=== PATIENT | female | born 1930 | race Caucasian/White ===

== ENCOUNTER 2017-04-13 06:15 | Inpatient (IN) | payer MEDICARE ==
--- NOTE | ~2017-04-13 | HP ---
History And Physical [id number] [place]. [address] NAME: MICHAEL CUMMINGS : [birth year] STATUS : ADM IN [facility]#: [id number] AGE: 86 ADM/REG DATE : 04/13/17 MR#: [id number] REPORT SERV DATE: 04/13/17 DICTATED BY: DACIA FIGUEROA DATE: 04/13/17 REPORT STATUS : Draft TRANSCRIBED BY: MODL DATE: 04/13/17 DATE OF ADMISSION: 04/13/2017 CHIEF COMPLAINT: Cough, shortness of breath, and generalized weakness. HISTORY OF PRESENT ILLNESS: Ms. Cummings is an 86-year-old female, who presented to the hospital early this morning with cough and shortness of breath that she says has progressed over 24 hours. According to her son, he visited with her earlier in the day and he noticed that she was not as talkative and seemed to be having some difficulty getting around, but he was not suspicious at that time. Later in the evening, the staff from the assisted living called and said that she was not herself and that she could not get out of bed. So, he drove over to the assisted living and took her to the emergency room. In the emergency room, she had her oxygen on, but her tank was empty and her O2 saturation was in the 70s. She also had acute hypercapnic respiratory failure with a pH of 7.3, a pCO2 of 60. She was offered BiPAP and refused. She was given Solu-Medrol 125 IV x1, and Levaquin 750 mg IV x1. This morning, she complains still of being shortness of breath. She is hoarse and she is feeling a little better. ALLERGIES: PENICILLIN, SULFA, ASPIRIN AND HCTZ. HCTZ HAS CAUSED HYPONATREMIA IN THE PAST. PRESENT MEDICATIONS: Present medications include Lopressor 25 twice daily, atorvastatin 40 at bedtime, Duragesic-25 every 72 hours, Lortab 5/325 four times a day, Neurontin 400 mg three times a day, Nexium 20 mg twice daily, amlodipine 7.5 daily, Senna-Gen 2 mg at bedtime, losartan 50 mg daily, Lopressor 50 mg twice daily, ferrous sulfate 325 daily, Actonel 35 mg q.week, Flector twice daily, trazodone 50 at bedtime, nitroglycerin patch once daily and at 0.2 mg/hour, Breo 100 one inhalation daily, Plavix 75 daily, Remeron 50 at bedtime, Lasix 20 daily, KCl 10 one tab three times a week, Cymbalta 30 twice daily, calcium with vitamin D twice daily, levothyroxine 75 mcg daily, Artificial Tears, DuoNeb as needed, and vitamin D3 26216 units every week. PAST MEDICAL HISTORY: Significant for COPD. She is an ex-smoker. She was in the hospital in November of this year for COPD exacerbation. She has chronic respiratory failure and is always on 2 L of oxygen. CAD, status post stenting. PVD, status post stenting of right lower extremity. Hypertension, CKD 3, hyperlipidemia, depression, anxiety, gastroesophageal reflux disease, chronic intermittent diarrhea secondary to a partial colectomy for colon cancer, essential tremor, low vision, venous insufficiency, osteoporosis. SOCIAL HISTORY: She lives in assisted living. She is an ex smoker. She does have an adult son who is involved in her care. FAMILY HISTORY: Noncontributory. REVIEW OF SYSTEMS: She does have an occasional chest pain. No diarrhea presently. No nausea, vomiting, abdominal pain, or dizziness. She does complain that when she takes her breathing treatment, it does worsen her tremor and makes it difficult for her to use her utensils to History And Physical [address] [place]. [address] NAME: MICHAEL CUMMINGS : [birth year] STATUS : ADM IN [facility]#: [id number] AGE: 86 ADM/REG DATE : 04/13/17 MR#: [id number] REPORT SERV DATE: 04/13/17 DICTATED BY: DACIA FIGUEROA DATE: 04/13/17 REPORT STATUS : Draft TRANSCRIBED BY: DERRICK DATE: 04/13/17 eat. PHYSICAL EXAMINATION: VITAL SIGNS: T-max was 101.8, blood pressure was 135/65, pulse was 108, respiratory rate was 18, O2 saturation was 92% on 3 L. GENERAL: She is an elderly white female, in no apparent distress. HEENT: Normocephalic, atraumatic. Conjunctiva not injected. No scleral icterus. Edentulous, wears dentures. CARDIAC: Regular rate and rhythm. LUNGS: She has diffuse rhonchi with occasional wheezing. ABDOMEN: Positive bowel sounds. Soft, nondistended, nontender. EXTREMITIES: 1+ edema in the lower extremities. NEURO: She is alert, fluent, but she is hoarse. She has 4/5 strength in her upper extremities, 4+ out of 5 in lower extremities. SKIN: No pressure ulcers. Does have some bruising on her forearm and her hands. : Has Stover draining clear, yellow urine. LABORATORY: Evaluation white count was elevated at 13.9, hemoglobin of 11.2, platelets 298. Chemistry was normal except for creatinine of 1.34 and a glucose of 155, albumin was 3.3. Lactate was normal at 1.4. BNP was 86.9. Troponin was less than 0.02. INR was 1.1. Blood gas was 7.30, 62, 259, 29.8, and 99%. UA, she had 30 proteins, small leukocyte esterase, she had 39 WBC and bacteria with flu. Chest x-ray showed no acute cardiopulmonary abnormality. IMPRESSION AND PLAN: 1. Chronic obstructive pulmonary disease exacerbation with [id number] hypercapnic- hypoxic respiratory failure. We will start DuoNebs q.6 hours. Prednisone 40 mg daily for five days only. Inhaled steroids. Continue Levaquin IV. Incentive spirometry. Continue oxygen. Repeat chest x-ray in the a.m. with a PA and lateral. We will do DVT prophylaxis with Lovenox. We will order PT evaluation and therapy. 2. Coronary artery disease, hypertension, peripheral vascular disease. Continue losartan, amlodipine, metoprolol, Plavix, atorvastatin. Sublingual nitroglycerin as needed. 3. Chronic pain of back and lower extremities. Continue Duragesic patch, Lortab, Flector patch. 4. Venous insufficiency. Continue furosemide and potassium. 5. Gastroesophageal reflux disease. Continue Nexium, PPI. 6. Depression, anxiety with insomnia. Continue trazodone, Cymbalta, and Remeron. 7. Discontinue Stover. 8. Hypothyroidism. Check TSH in a.m. Continue levothyroxine. The patient is a DNR, limited additional interventions. Son was at bedside. Explained treatment and plan of care. The patient urged to be compliant with her bronchodilators even though they may worsen her tremor, because they will help with her chronic obstructive pulmonary disease and improve her breathing and she was agreeable to this. LMB/MODL History And Physical [address] [place]. [address] NAME: MICHAEL CUMMINGS : [birth year] STATUS : ADM IN PAT#: [id number] AGE: 86 ADM/REG DATE : 04/13/17 MR#: [id number] REPORT SERV DATE: 04/13/17 DICTATED BY: DACIA FIGUEROA DATE: 04/13/17 REPORT STATUS : Draft TRANSCRIBED BY: DERRICK DATE: 04/13/17 Dacia Figueroa M.D. / [id number] CC: Dacia Figueroa M.D.
--- NOTE | ~2017-04-13 | DS ---
Discharge Summary [address] [place]. [address] NAME: MICHAEL CUMMINGS : [birth year] STATUS : DIS IN PAT#: [id number] AGE: 86 ADM/REG DATE : 04/13/17 MR#: [id number] REPORT SERV DATE: 04/30/17 DICTATED BY: DACIA FIGUEROA DATE: 04/29/17 REPORT STATUS : Draft TRANSCRIBED BY: DERRICK DATE: 04/29/17 Data Collection from hospitalization DISCHARGE DIAGNOSES: 1. Chronic obstructive pulmonary disease exacerbation. 2. Coronary artery disease. 3. Stage III chronic kidney disease. 4. Depression. 5. Chronic pain. 6. Hypertension. 7. Former smoker. 8. Anxiety. 9. Gastroesophageal reflux disease. 10.History of colon cancer. 11.Essential tremors. 12.Venous insufficiency. 13.Osteoporosis. CONSULTATIONS: None. PROCEDURES PERFORMED: None. MEDICATIONS: DuoNeb inhaled solution one nebulized inhalation as instructed; ProAir two puffs via inhaler every four hours as needed; albuterol one nebulized inhaler every six hours as instructed; Norvasc 7.5 mg every morning; Lipitor 40 mg at bedtime; Caltrate Plus D 600 mg twice a day; maximum D3 100,000 units every 30 days as instructed; Plavix 75 mg at bedtime; Voltaren one application topically twice a day; Cymbalta 30 mg twice a day; Duragesic one patch topically every 72 hours; ferrous sulfate 325 mg every morning; Flonase nasal spray two sprays nasally twice a day; Breo Ellipta one puff via inhaler every morning; Siltussin 10 mL every six hours as needed; Basalt 5/325 one tablet four times a day as needed; Levaquin 750 mg every 48 hours as instructed; Synthroid 75 mcg every morning; Imodium 2 mg four times a day as needed; Cozaar 50 mg every morning; Lopressor 75 mg twice a day; Remeron 15 mg at bedtime; Clear Eyes one drop as needed; Nitro-Dur one patch topically daily; Protonix 40 mg before breakfast; Klor-Con 10 mEq on Mondays, Wednesdays, and Fridays; Deltasone 40 mg daily as instructed; Actonel 35 mg every seven days; Florastor 250 mg twice a day; Spiriva two capsules via inhaler daily; Desyrel 25 mg at bedtime; Drisdol one capsule every 14 days as instructed; and Flector patch one patch topically twice a day as needed. She was instructed not to continue Nexium, Tylenol, Pulmicort, hydrochlorothiazide, hydrocortisone, senna, Abreva, or Robitussin. CONDITION AT DISCHARGE: Stable. DISPOSITION: The patient was discharged home on a low-cholesterol, low-sodium, 1800-calorie cardiac/diabetic diet with no concentrated carbohydrates and activities as instructed. HOSPITAL COURSE: This is an 86-year-old female who presented to the hospital on the morning of this admission with a cough and shortness of breath and she had progressed over the last 24 hours. According to her son, he visited with her earlier in the day and he noticed that Discharge Summary [address] [address] NAME: MICHAEL CUMMINGS : [birth year] STATUS : DIS IN PAT#: [id number] AGE: 86 ADM/REG DATE : 04/13/17 MR#: [id number] REPORT SERV DATE: 04/30/17 DICTATED BY: DACIA FIGUEROA DATE: 04/29/17 REPORT STATUS : Draft TRANSCRIBED BY: DERRICK DATE: 04/29/17 she was not as talkative and seemed to be having some difficulty getting around, but he was not suspicious at that time. Later in the evening, the staff from the assisted living facility called and said that she was not herself and that she could not get out of bed. So, he drove to the assisted living facility and took her to the emergency room. In the emergency room, she had her oxygen on, but her tank was empty. Her O2 saturations were in the 70s. She also had acute hypercapnic respiratory failure. She was admitted to the hospital for further evaluation and treatment. Upon admission, she was hoarse, but was feeling a little better. She was given a dose of IV Solu-Medrol and a dose of IV Levaquin. DuoNebs were started. Prednisone was going to be continued for five days. Inhaled steroids would be provided. IV Levaquin was continued. She was encouraged to use incentive spirometry. Oxygen was continued. Lovenox would be started for DVT prophylaxis. Losartan, amlodipine, metoprolol, Plavix, and atorvastatin were continued. She would be given sublingual nitroglycerin as needed. For her chronic pain, Duragesic patch, Lortab, and Flector patch were continued. We were also going to continue her furosemide, potassium, Nexium, proton pump inhibitor, trazodone, Cymbalta, and Remeron. The Stover catheter was going to be removed. We were going to check a TSH and we would continue her levothyroxine. The patient is a DNR code status with limited additional intervention. The patient was urged to be compliant with her bronchodilators even though that may worsen her tremor because this would help with her chronic obstructive pulmonary disease and improve her breathing. The following day, she was evaluated by Physical Therapy. She did have a bowel movement. She ambulated with Physical Therapy. She denied any increase in her tremor. She did have diffuse rhonchi and wheezing in her lung oliver. Steroids and bronchodilators were continued as well as oxygen and antibiotics. Stool was going to be checked for occult blood. On 04/15/2017, she had no acute complaints. She did have some shortness of breath on exertion. She had no chest pain. She had an occasional cough. She continued to have bowel movements. She complained that her pain had increased with decreasing the opiates. Opiates were increased back to baseline. Discharge planning was performed. On 04/16/2017, she had an occasional cough that was only minimally productive. She had no edema. She had no rhonchi or wheezing. Levaquin was continued as well as steroids and bronchodilators. Oxygen was also continued. A dose of KCl was given. Discharge instructions were given. Due to her improved and stable condition, she was discharged home to [facility] with the above-stated instructions. Information collected by: Jessica Almazan I submit the above information as my discharge summary. JUAN M/DERRICK Dacia Figueroa M.D. / [id number] CC: Dacia Figueroa M.D.
[~2017-04-13 06:15] MED LIST: ABREVA; ACETAMINOPHEN; ACETSUP650 PR; ACTONEL35 MG PO; ALBUTEROL0.083 %; ALIGN4 MG PO; ATROVENTUD INH; BREO ELLIPTA INH; CALCIUM 600MG; CALTRA600D PO; COZ50 PO; CYMBALTA30 PO; CYMBALTA60 PO; D 5000; D.O.S.100 MG PO; DULERA 200 MCG/13 GM INH; DUONEB INH; DURA25 TOP; FERROUS SULF325 M1 PO; FLECTOR PATCH TOP; FLONASE NAS; FLORASTOR250 MG PO; GGEXPUD PO; HEMOCYTE324 MG PO; HYDROCHLOROT12.5 MG PO; HYDROCODONE; HYDROCODONE 7.5/500; IMOD PO; KLOR-CON 1010 MEQ PO; L20 PO; LEVAQUIN5T PO; LEVAQUIN750 MG PO; LEVOTHYROXIN75 MCG PO; LIBRAX PO; LIPITOR40 PO; LOP25 PO; LOP50 PO; MEDROL4 PO; MEDROLPAK4; MINITRAN0.2 MG/HR TOP; MUCINEX600 MG PO; NEUR300 PO; NEUR400 PO; NEXIUM20 M1 PO; NITROII10C TOP; NORCO1 TA1 PO; NORV5 PO; P10; PCET PO; PLAVIX PO; PRIN10 PO; PROAIRRESP INH; PULRESP.5 INH; REM15 PO; SENTAB PO; SYN.05 PO; SYSTANE OPH; T PO; TEAR OPH; TEARS PLUS OPH; TRAZ50 PO; VENTOLIN HFA INH; VITAMIN B-121000 MC1 SL; VITD PO; VOLTAREN1 %; VOLTAREN1 % TOP; [UNRECOGNIZED DRUG - CODE]; [UNRECOGNIZED DRUG - OTHER]
[2017-04-13] MEDS ORDERED: FERROUS SULF325 M1 PO (09:29)
[2017-04-13] MEDS ORDERED: ACTONEL35 MG PO (09:29)
[2017-04-13] MEDS ORDERED: ZOSTRIX CREAM56.6 GM (09:33)
[2017-04-13] MEDS ORDERED: REM15 PO (09:34)
[2017-04-13] MEDS ORDERED: L20 PO (09:35)
[2017-04-14 07:15] LABS: BASOPHILS 0 %; EOSINOPHILS 0 %; HEMOGLOBIN 9.7 g/dL (12.0-16.0); IMMATURE GRANULOCYTES 0.4 %; IMMATURE GRANULOCYTES ABSOLUTE 0.03 10/3/uL (0.0-0.11); LYMPHOCYTES 9.4 %; LYMPHOCYTES ABSOLUTE 0.72 10/3/uL (0.67-4.30); MEAN CORPUS HGB CONC 30.8 g/dL (32.0-36.0); MEAN CORPUSCULAR HEMOGLOB 29.7 pg (26.0-34.0); MEAN CORPUSCULAR VOLUME 96.3 fL (80-100); MEAN PLATELET VOLUME 9.6 fL (9.2-13.0); MONOCYTES 7.3 %; MONOCYTES ABSOLUTE 0.56 10/3/uL (0.21-1.20); NEUTROPHILS 82.9 %; NEUTROPHILS ABSOLUTE 6.35 10/3/uL (2.02-8.40); PLATELET COUNT 219 10/3/uL (150-400); RBC DISTRIBUTION WIDTH 12.8 % (12.0-16.0); RED CELL COUNT 3.27 10/6/uL (4.0-5.6)
[2017-04-14 07:18] LABS: HEMATOCRIT 31.5 % (36.0-48.0); MANUAL DIFF NO %; WHITE BLOOD CELLS 7.7 10/3/uL (4.5-10.5)
[2017-04-14 07:26] LABS: BUN (BLOOD UREA NITROGEN) 21 MG/DL (6-23); CALCIUM, SERUM 8.8 MG/DL (8.5-10.4); CHLORIDE, SERUM 97 MMOL/L (96-112); CO2 (CARBON DIOXIDE) 34 MMOL/L (24-34); CREATININE 1.14 MG/DL (0.55-1.02); GFR AFRICAN AMERICAN 50 ML/MIN (>=60); GFR NON AFRICAN AMERICAN 43 ML/MIN (>=60); GLUCOSE, SERUM 121 MG/DL (60-99); POTASSIUM, SERUM 3.7 MMOL/L (3.5-5.3); SODIUM, SERUM 138 MMOL/L (135-148); ULTRASENSITIVE TSH 0.491 MCIU/ML (0.358-3.740)
[2017-04-14] MEDS ORDERED: ALBUTEROL0.083 % INH (16:16)
[2017-04-14] MEDS ORDERED: T PO (16:16)
[2017-04-14] MEDS ORDERED: PULRESP.5 INH (16:17)
[2017-04-14] MEDS ORDERED: NORV5 PO (16:17)
[2017-04-14] MEDS ORDERED: CALTRA600D PO (16:17)
[2017-04-14] MEDS ORDERED: BREO ELLIPTA INH (16:17)
[2017-04-14] MEDS ORDERED: CYMBALTA30 PO (16:19)
[2017-04-14] MEDS ORDERED: DRISDOL 50000 UNIT PO (16:19)
[2017-04-14] MEDS ORDERED: NEXIUM20 M1 PO (16:20)
[2017-04-14] MEDS ORDERED: DURA25 TOP (16:21)
[2017-04-14] MEDS ORDERED: FERROUS SULF325 M1 PO (16:22)
[2017-04-14] MEDS ORDERED: FLONASE NAS (16:22)
[2017-04-14] MEDS ORDERED: NEUR300 PO (16:25)
[2017-04-14] MEDS ORDERED: HYDROCHLOROT12.5 MG PO (16:26)
[2017-04-14] MEDS ORDERED: NORCO1 TA1 PO (16:26)
[2017-04-14] MEDS ORDERED: CORT-DOME 1% CR15 GM TOP (16:40)
[2017-04-14] MEDS ORDERED: DUONEB INH ×3 (16:40→16:59)
[2017-04-14] MEDS ORDERED: COZ50 PO (16:41)
[2017-04-14] MEDS ORDERED: SYN075 PO (16:41)
[2017-04-14] MEDS ORDERED: KLOR-CON 1010 MEQ PO (16:41)
[2017-04-14] MEDS ORDERED: MEDROLPAK4 PO (16:42)
[2017-04-14] MEDS ORDERED: LOP25 PO (16:43)
[2017-04-14] MEDS ORDERED: NITROII10C TOP (16:44)
[2017-04-14] MEDS ORDERED: ACTONEL35 MG PO (16:46)
[2017-04-14] MEDS ORDERED: MAXIMUM D3 PO (16:47)
[2017-04-14] MEDS ORDERED: VOLTAREN1 % TOP (16:47)
[2017-04-14] MEDS ORDERED: PLAVIX PO (16:48)
[2017-04-14] MEDS ORDERED: LIPITOR40 PO (16:48)
[2017-04-14] MEDS ORDERED: REM15 PO (16:49)
[2017-04-14] MEDS ORDERED: TRAZ50 PO (16:50)
[2017-04-14] MEDS ORDERED: SENTAB PO (16:50)
[2017-04-14] MEDS ORDERED: ABREVA TOP (16:51)
[2017-04-14] MEDS ORDERED: CLEAR EYE1 OPH (16:57)
[2017-04-14] MEDS ORDERED: FLECTOR PATCH 1.3% TOP (16:58)
[2017-04-14] MEDS ORDERED: SILTUSSIN100 MG/5 M PO (16:59)
[2017-04-14] MEDS ORDERED: IMOD PO (17:00)
[2017-04-14] MEDS ORDERED: PROAIR HFA INH (17:00)
[2017-04-14] MEDS ORDERED: GGDM5ML PO (17:01)
[2017-04-15 05:39] LABS: BASOPHILS 0 %; EOSINOPHILS 0 %; HEMATOCRIT 32.4 % (36.0-48.0); HEMOGLOBIN 10.2 g/dL (12.0-16.0); IMMATURE GRANULOCYTES 0.3 %; IMMATURE GRANULOCYTES ABSOLUTE 0.02 10/3/uL (0.0-0.11); LYMPHOCYTES 16.2 %; LYMPHOCYTES ABSOLUTE 1.28 10/3/uL (0.67-4.30); MEAN CORPUS HGB CONC 31.5 g/dL (32.0-36.0); MEAN CORPUSCULAR HEMOGLOB 30.1 pg (26.0-34.0); MEAN CORPUSCULAR VOLUME 95.6 fL (80-100); MEAN PLATELET VOLUME 9.4 fL (9.2-13.0); MONOCYTES 8.5 %; MONOCYTES ABSOLUTE 0.67 10/3/uL (0.21-1.20); NEUTROPHILS ABSOLUTE 5.93 10/3/uL (2.02-8.40); PLATELET COUNT 266 10/3/uL (150-400); RBC DISTRIBUTION WIDTH 12.9 % (12.0-16.0); RED CELL COUNT 3.39 10/6/uL (4.0-5.6); WHITE BLOOD CELLS 7.9 10/3/uL (4.5-10.5)
[2017-04-15 05:40] LABS: MANUAL DIFF NO %
[2017-04-15 05:59] LABS: BUN (BLOOD UREA NITROGEN) 23 MG/DL (6-23); CALCIUM, SERUM 8.7 MG/DL (8.5-10.4); CHLORIDE, SERUM 99 MMOL/L (96-112); CO2 (CARBON DIOXIDE) 35 MMOL/L (24-34); CREATININE 1.25 MG/DL (0.55-1.02); FERRITIN 613 NG/ML (8-252); GFR AFRICAN AMERICAN 44 ML/MIN (>=60); GFR NON AFRICAN AMERICAN 38 ML/MIN (>=60); GLUCOSE, SERUM 101 MG/DL (60-99); POTASSIUM, SERUM 3.4 MMOL/L (3.5-5.3); SODIUM, SERUM 139 MMOL/L (135-148)
[2017-04-16 07:13] LABS: BUN (BLOOD UREA NITROGEN) 25 MG/DL (6-23); CHLORIDE, SERUM 97 MMOL/L (96-112); CO2 (CARBON DIOXIDE) 37 MMOL/L (24-34); CREATININE 1.17 MG/DL (0.55-1.02); GFR AFRICAN AMERICAN 48 ML/MIN (>=60); GFR NON AFRICAN AMERICAN 42 ML/MIN (>=60); GLUCOSE, SERUM 99 MG/DL (60-99); POTASSIUM, SERUM 3.4 MMOL/L (3.5-5.3); SODIUM, SERUM 137 MMOL/L (135-148)
[2017-04-16 07:14] LABS: ULTRASENSITIVE TSH 0.371 MCIU/ML (0.358-3.740)
[2017-04-16] MEDS ORDERED: VOLTAREN1 % TOP (12:28)
[2017-04-16] MEDS ORDERED: LEVAQUIN750 MG PO (12:31)
[2017-04-16] MEDS ORDERED: PROTONIX PO (12:34)
[2017-04-16] MEDS ORDERED: FLORASTOR250 MG PO (12:35)
[2017-04-16] MEDS ORDERED: P20 PO (12:36)
[2017-04-16] MEDS ORDERED: SPIRIVA INH (12:38)
== END 2017-04-16 13:02 | DRG 189 ==
LOC: 2SO 06:15
PROVIDERS: Internal Medicine Geriatric Medicine
PROC: 5A09457 Assistance with Respiratory Ventilation, 24-96 Consecutive Hours, Continuous Positive Airway Pressure (ICD-10-PCS; principal; 2017-04-13)
DX: J96.21 Acute and chronic respiratory failure with hypoxia (principal); J44.1 Chronic obstructive pulmonary disease with (acute) exacerbation; E87.5 Hyperkalemia; I13.0 Hypertensive heart and chronic kidney disease with heart failure and stage 1 through stage 4 chronic kidney disease, or unspecified chronic kidney disease; I50.32 Chronic diastolic (congestive) heart failure; N39.0 Urinary tract infection, site not specified; R13.11 Dysphagia, oral phase; I48.0 Paroxysmal atrial fibrillation; B37.49 Other urogenital candidiasis; F32.9 Major depressive disorder, single episode, unspecified; N18.3 Chronic kidney disease, stage 3 (moderate); J96.22 Acute and chronic respiratory failure with hypercapnia; I25.10 Atherosclerotic heart disease of native coronary artery without angina pectoris; Z51.5 Encounter for palliative care; Z66 Do not resuscitate; I73.9 Peripheral vascular disease, unspecified; K21.9 Gastro-esophageal reflux disease without esophagitis; G25.0 Essential tremor; R19.7 Diarrhea, unspecified; M81.0 Age-related osteoporosis without current pathological fracture; E03.9 Hypothyroidism, unspecified; D63.1 Anemia in chronic kidney disease; G89.29 Other chronic pain; M54.9 Dorsalgia, unspecified; I87.2 Venous insufficiency (chronic) (peripheral); F41.9 Anxiety disorder, unspecified; Z88.0 Allergy status to penicillin; Z88.2 Allergy status to sulfonamides; Z88.6 Allergy status to analgesic agent; Z88.8 Allergy status to other drugs, medicaments and biological substances; Z90.49 Acquired absence of other specified parts of digestive tract; Z87.891 Personal history of nicotine dependence; Z85.038 Personal history of other malignant neoplasm of large intestine; Z79.01 Long term (current) use of anticoagulants
CPT/HCPCS: 36600; 71010; 71020; 80048; 80053; 81001; 82728; 82805; 83605; 83690; 83880; 84443; 84484; 85025; 85610; 85730; 87040; 87077; 87086; 87186; 93005; 94640; 96365; 96375; 97110-GP; 97116-GP; 97161-GP; 99285; A9270-GY; J1956; J2930